=== PATIENT | male | born 1955 | race Caucasian/White ===

== ENCOUNTER 2019-12-21 01:50 | Inpatient (IN) | payer OTHER ==
[~2019-12-21] VITALS: Ht 180.3 cm; Wt 62.1 kg
--- NOTE | ~2019-12-21 | OP ---
[place] [address] OPERATIVE REPORT Name: JOEYANTOINETTE Dickinson Room: [address] IN M.R.#: [id number] Admission: 12/21/19 Attend Phys: Chad Ford MD Discharge: Date of : 59 Report #: [id number] THIS REPORT FOR: //name// cc: Vance Arango MD, Anthony MD ~ CC: Vance Ford DICTATED BY: Kole Pineda DO DATE OF SERVICE: 12/21/2019 PREOPERATIVE DIAGNOSIS: Right displaced femoral neck fracture. POSTOPERATIVE DIAGNOSIS: Right displaced femoral neck fracture. PROCEDURE: Right hip hemiarthroplasty. SURGEON: Oseas Remy DO IMPLANTS: As the followin. A size 12 Taperloc stem, high offset. 2. RingLoc bipolar head 52/28 mm. ASSISTANTS: Kole Pineda DO, Daria Leo DO, . ANESTHESIA: General. FLUIDS: Crystalloid per Anesthesia. ESTIMATED BLOOD LOSS: 200 mL. COMPLICATIONS: None. SPECIMENS: None. COMPLICATIONS: None. CONDITION: Stable to PACU. DISPOSITION: Recovery in PACU and transferred back to the floor. ANTIBIOTICS: 2 grams Ancef IV preop. INDICATIONS FOR PROCEDURE: The patient is a 64-year-old male who sustained a ground level fall. He was brought to [facility] [place] [address] OPERATIVE REPORT Name: ANTOINETTE COOK Room: [address] IN [facility]#: [id number] Admission: 12/21/19 Attend Phys: Chad Ford MD Discharge: Date of : 59 Report #: [id number] x-rays demonstrated a displaced right femoral neck fracture. Different treatment options were discussed at length including hemiarthroplasty. The risks, benefits, alternatives and possible complications were discussed including but not limited to bleeding, vascular injury, infection, intraoperative fracture, pain, stiffness, infection, need for repeat surgery and DVT, PE, , and possible anesthesia complications. He expressed his understanding and was agreeable to proceed. DESCRIPTION OF PROCEDURE: The patient was met in the preoperative area. The correct site was marked. Verbal and written consent were obtained. He was transferred to the operative suite and placed in supine on the OR table. He was given the benefit of general anesthesia and then placed in the left lateral decubitus position. He was secured with the pegboard. All bony prominences were well padded. He was given antibiotics prior to the start of the procedure. A timeout was performed to identify correct patient, procedure and operative site. All in the room were in agreement. This occurred after the right lower extremity was prepped and draped in the normal sterile fashion. The procedure began with an incision on the lateral aspect of the femur extending proximally and curving posteriorly. Sharp and blunt dissection was carried down to the level of the fascia, which was split in line with the incision. Charnley retractor was then placed. We then released the gluteal muscles off of the greater trochanter. A T capsulotomy was then performed exposing the displaced femoral neck fracture. A reciprocating saw was then used for the neck cut approximately 1 cm proximal to the lesser trochanter. This was followed by removal of the fractured femoral head. A trial 52 head was then placed into the acetabulum and was found to have good fit and stability. We then turned our attention to preparation of the femoral canal. We used a box osteotome followed by the canal finder. We then sequentially broached up to a size 12. Trial components consisting of a high offset and 52 head with a -3 neck were then placed and reduced. He was found to be stable with shucking and through range of motion including flexion and internal rotation. Trial components were removed. The incision and bone were then thoroughly irrigated. Final components were thrown on the back table. The final stem was then malleted into place in a press-fit fashion. The final bipolar head was then malleted into place and was found to be stable. We then reduced the final components. The hip was found to be stable again through range of motion and shucking. The wound was then again thoroughly irrigated. The capsule was repaired with #1 Vicryl in cjvwez-pv-wjdle fashion. We then repaired the gluteus to the greater trochanter with #5 Ethibond. This was then oversewn with #1 Vicryl. The fascia was then reapproximated with #1 Vicryl in qmnrgb-fn-ycwsu fashion. The skin was closed with 2-0 Vicryl and simple and inverted interrupted fashion followed by solitario on the skin. Sterile Mepilex dressing was applied to the hip. He was extubated and transferred to the PACU in stable condition. All needle and sponge counts were correct x 2 at the end of the [place] [address] OPERATIVE REPORT Name: ANTOINETTE COOK Room: [facility] IN .R.#: [id number] Admission: 12/21/19 Attend Phys: Chad Ford MD Discharge: Date of : 59 Report #: [id number] complications. I attest Dr. Remy was present and scrubbed throughout all critical aspects of the case. By: 1131 [id number] Remy, DO /nt
[~2019-12-21 01:50] MED LIST: ALUMINUM H320 MG/5 M PO; AMBIEN 5 MG TABL5 M1 PO; AUGMENTIN 875875 M1 PO; BENZTROPINE MES1 MG PO; BISCOLAX10 MG RC; BUDEPRION SR150 MG PO; CLONAZEPAM PO; COZAAR 50 MG TA50 M2 PO; DESYREL100 MG PO; FEVERALL650 MG RECTAL; HYDROCODONE-AP1 EAC6 PO; LEVAQUIN 500 M500 M2 IV; NEURONTIN 300300 M1 PO; NEURONTIN 300M300 M2 PO; NICOTINE TRANSD21 M1; OMEPRAZOLE20 M2 PO; ONDANSETRON HCL4 M2 IV PUSH; PERCOCET 7.5-31 EACH; POLYOX WSR-3011 GM PO; PROTONIX40 M1 PO; PROTONIX40 M2 PO; REMERON15 MG PO; RISPERDAL2 MG PO; TOPROL XL100 MG PO; TRAMADOL 50 MG50 MG PO; TRAZODONE 150150 M1 PO; TYLENOL325 MG PO; XANAX1 MG PO
[2019-12-21 02:17] LABS: ABSOLUTE BASOPHILS 0.1 thou/uL (0.0-0.2); ABSOLUTE EOSINOPHILS 0.1 thou/uL (0.0-0.7); ABSOLUTE LYMPHOCYTES 1.1 thou/uL (0.8-5.3); ABSOLUTE MONOCYTES 0.5 thou/uL (0.0-1.2); BASOPHILS 1.3 %; EOSINOPHILS 1.9 %; HEMOGLOBIN 10.6 gm/dL (14.0-18.0); LYMPHOCYTES 16.7 %; MCH 27.6 pg (26.0-34.0); MCHC 33.3 g/dL (28.0-37.0); MONOCYTES 7.3 %; NUCLEATED RBCS 0 /100WBC; PLATELET COUNT* 319 thou/uL (150-400); POLYS 72.8 %; RBC 3.85 mil/uL (4.50-6.00); RDW-CV 18.9 % (10.5-14.5); WBC 6.9 thou/uL (4.0-11.0)
[2019-12-21 02:22] LABS: CALCIUM 9.3 mg/dL (8.5-10.1); CREATININE 1.1 mg/dL (0.6-1.3); POTASSIUM 4.5 mmol/L (3.5-5.1)
[2019-12-21 02:27] LABS: ALBUMIN 3.5 g/dL (3.4-5.0); TOTAL BILIRUBIN 0.4 mg/dL (<0.1-1.0); TOTAL PROTEIN 7.2 g/dL (6.4-8.2)
[2019-12-21 03:45] VITALS: BP 148/72
[2019-12-21 04:03] LABS: URINE BILIRUBIN NEGATIVE (Negative); URINE BLOOD NEGATIVE (Negative); URINE CLARITY CLEAR; URINE COLOR YELLOW; URINE GLUCOSE-RANDOM NEGATIVE (Negative); URINE KETONES NEGATIVE (Negative); URINE LEUKOCYTES-REFLEX NEGATIVE (Negative); URINE NITRITE-REFLEX NEGATIVE (Negative); URINE PROTEIN NEGATIVE (Negative); URINE UROBILINOGEN 0.2 E.U./dl (0.2-1.0)
[2019-12-21 04:07] VITALS: BP 133/72
[2019-12-21 08:54] VITALS: BP 139/77
[2019-12-21 12:45] VITALS: BP 131/76
--- NOTE | 2019-12-21 13:12 | EKG ---
[place] [address] ELECTROCARDIOGRAM REPORT Name: ANTOINETTE COOK Room: [address] ADM IN .R.#: [id number] Admission: 12/21/19 Attend Phys: Chad Ford, Discharge: Date of : 59 Date of Service: 12/21/19 0202 Report #: [id number] THIS REPORT FOR: //name// [facility] ED Test Date: 2019-12-21 Test Time: 02:02:30 Pat Name: ANTOINETTE COOK Department: Room: [facility] Gender: M [employer]anner: : 1955 Requested By: Nery Liriano Order Number: [id number] MD: Boni Cisneros Measurements Intervals [place] Rate: 68 P: 89 OK: 136 QRS: 81 QRSD: 88 T: 76 QT: 432 QTc: 460 Interpretive Statements Sinus rhythm Consider left atrial enlargement Consider right ventricular hypertrophy Left ventricular hypertrophy Compared to ECG 02/05/2016 16:42:06 Left ventricular hypertrophy now present Prolonged QT interval no longer present Electronically Signed On 12-21-2019 13:12:32 CDT by Boni Cisneros [email or web address] <ELECTRONICALLY SIGNED> By: Keshav Cisneros MD, [facility] 12/21/19 131 1 1 Keshav Cisneros MD, [facility] /EPI
[2019-12-21 16:00] VITALS: BP 100/61
[2019-12-21 19:45] VITALS: BP 103/59
[2019-12-22] VITALS: BP 112/74
[2019-12-22 03:15] VITALS: BP 124/65
[2019-12-22 03:40] LABS: HEMATOCRIT 27.5 % (42.0-52.0); HEMOGLOBIN 9.2 gm/dL (14.0-18.0)
[2019-12-22 08:00] VITALS: BP 97/54
[2019-12-22 16:06] VITALS: BP 114/65
[2019-12-22 20:50] VITALS: BP 121/73
[2019-12-23 04:20] VITALS: BP 104/57
[2019-12-23 04:42] LABS: HEMATOCRIT 26.7 % (42.0-52.0); HEMOGLOBIN 9.2 gm/dL (14.0-18.0)
[2019-12-23 07:30] VITALS: BP 107/66
[2019-12-23] MEDS ORDERED: ELIQUIS5 MG PO (08:40)
[2019-12-23 08:45] VITALS: BP 107/66
[2019-12-23 08:47] VITALS: BP 107/66
[2019-12-23 16:18] VITALS: BP 115/61
[2019-12-23 22:30] VITALS: BP 125/70
[2019-12-24 07:05] VITALS: BP 114/59
[2019-12-24 16:00] VITALS: BP 100/63
[2019-12-24 20:28] VITALS: BP 131/66
[2019-12-25 07:10] VITALS: BP 127/76
[2019-12-25 12:14] VITALS: BP 107/66
[2019-12-25 16:00] VITALS: BP 163/70
[2019-12-25 16:20] VITALS: BP 107/66
[2019-12-25 16:23] VITALS: BP 107/66
== END 2019-12-25 16:49 | disposition home health service (06) | DRG 470 ==
LOC: M.ERS 01:50 → M.ORTHSURG 03:04 → M.TBA-ER 03:04 → M.ORTHSURG 03:58
PROVIDERS: Emergency Medicine; Orthopaedic Surgery; ADMIT Internal Medicine; ATTEND Internal Medicine
PROC: 3E0T3BZ Introduction of Anesthetic Agent into Peripheral Nerves and Plexi, Percutaneous Approach (ICD-10-PCS; principal; 2019-12-21)
PROC: 0SRR0JA Replacement of Right Hip Joint, Femoral Surface with Synthetic Substitute, Uncemented, Open Approach (ICD-10-PCS; 2019-12-21)
DX: M80.051A Age-related osteoporosis with current pathological fracture, right femur, initial encounter for fracture (principal); D62 Acute posthemorrhagic anemia; K21.9 Gastro-esophageal reflux disease without esophagitis; F31.9 Bipolar disorder, unspecified; G47.00 Insomnia, unspecified; I10 Essential (primary) hypertension; J44.9 Chronic obstructive pulmonary disease, unspecified; R13.10 Dysphagia, unspecified; Z20.828 Contact with and (suspected) exposure to other viral communicable diseases; Z79.899 Other long term (current) drug therapy; Z88.8 Allergy status to other drugs, medicaments and biological substances; Z87.891 Personal history of nicotine dependence

== ENCOUNTER 2020-07-28 08:32 | Inpatient (IN) | payer OTHER ==
[~2020-07-28] VITALS: Ht 180.3 cm; Wt 63.1 kg
--- NOTE | ~2020-07-28 | PROC ---
[address] [address] PROCEDURE REPORT Name: ANTOINETTE COOK Room: [address] IN M.R.#: [id number] Admission: 07/28/20 Attend Phys: Chad Ford MD Discharge: 07/29/20 Date of : 59 Report #: [id number] THIS REPORT FOR: cc: Vance Arango MD, Anthony MD [facility],Medical Records Staff ~ For GI report, please see the Provation report in Perceptive 7 content. By: [id number] Records Staff [facility] /KAY
--- NOTE | ~2020-07-28 | CON ---
[address] [address] CONSULTATION Name: ANTOINETTE COOK Room: [address] IN M.R.#: [id number] Admission: 07/28/20 Attend Phys: Chad Ford MD Discharge: 07/29/20 Date of : 59 Report #: [id number] THIS REPORT FOR: cc: Vance Arango MD,Homero Perez MD, DO ~ DOC #: [id number] cc: Chad Ford MD, MD Homero Cortes DO DATE OF CONSULTATION: 07/28/2020 GASTROENTEROLOGY CONSULTATION REFERRING PHYSICIAN: Chad Ford MD REASON FOR CONSULTATION: 1. Dysphagia with findings suggestive of slipped esophageal stent -- evaluate for possible readvancement versus removal of the same. 2. Benign esophageal stricture measuring 6 cm in the distal esophagus with recent deployment of a fully covered esophageal stent (18 mm x 123 mm). 3. History of chronic pancreatitis related to previous alcohol abuse. 4. Weight loss secondary to #1. RECOMMENDATIONS: In comparing the patient's recent x-rays with those from the emergency room, it appears that the stent has definitely migrated proximally. For this reason, we will proceed with upper endoscopy, possible advancement of the stent versus removal of the same. I discussed these plans with the patient as well. He is agreeable to the same. HISTORY OF PRESENT ILLNESS: A 64-year-old white male with history of rather long esophageal stricture that required placement of an 18 mm x 123 mm fully covered esophageal stent this past Monday to help palliate his complaints of dysphagia. The stent was actually placed under fluoroscopic imaging and looked good at the end of deployment. The patient contacted me, however, the day before his admission with complaints that he felt as if the stent may have migrated and for this reason, I recommended he come to the emergency room for further evaluation. I then contacted the emergency room doctor, Dr. Falcon, regarding the same and sent him a picture of where the proximal portion of the stent was on his previous chest x-ray which was just above the lisa. Upon comparing this x-ray with the findings of his x-ray now, it appears the stent had migrated. For this reason, he was admitted to the hospital for further evaluation. He has not been able to eat much of anything. He is also having rather severe chest discomfort and chest pain. He was admitted to the hospital for further [place] [address] CONSULTATION Name: ANTOINETTE COOK Teena Room: [address]#: [id number] Admission: 07/28/20 Attend Phys: Chad Ford MD Discharge: 07/29/20 Date of : 59 Report #: [id number] ALLERGIES: Are to LITHIUM. MEDICATIONS AT HOME: Are supposed to be omeprazole 40 mg twice daily, but we had difficulty getting him approved for twice daily. He also takes Remeron, Desyrel, Cozaar, Xanax and Risperdal. PAST MEDICAL HISTORY: Significant for benign esophageal stricture as I mentioned above. He has problems with anxiety, depression, history of chronic alcohol abuse, history of chronic pancreatitis for which he had endoscopic ultrasound, ERCP and stents placed in the past. He has a history of bipolar disorder as well. PAST SURGICAL HISTORY: He had previous tonsillectomy ___ back in the 60s. SOCIAL HISTORY: The patient denies any recreational drug use. Previously smoked and he quit alcohol. PHYSICAL EXAMINATION: GENERAL: Revealed an emaciated 64-year-old gentleman who appears older than stated age. CARDIOVASCULAR: Revealed a regular rhythm. LUNGS: Clear. ABDOMEN: Soft and nontender. No rebound or guarding noted. LABORATORY DATA: Revealed a white count of 7.4, hemoglobin 12.1, platelet count 282,000, MCV of 78.1, RDW is 15.5. Sodium 132, potassium 4.3, chloride 97, bicarb is 27, BUN 10, creatinine 1.14, GFR 68. Total bilirubin 0.3, alkaline phosphatase 144, AST 7, ALT 16, albumin 3.9. Two view chest x-ray revealed an esophageal stent measuring about 12 cm in length located up to mid esophagus without evidence for pneumomediastinum. The remainder of the x-ray was unremarkable. DISCUSSION: At the present time, the patient's stent has definitely migrated. We will proceed with upper endoscopy today and make further recommendations thereafter. I discussed plans with family as well and he is agreeable to same. Homero Guzmán DO /[address] [address] CONSULTATION Name: ANTOINETTE COOK Room: [address] IN ..#: [id number] Admission: 07/28/20 Attend Phys: Chad Ford MD Discharge: 07/29/20 Date of : 59 Report #: [id number] By: [id number] Guzmán DO /fiorella
[~2020-07-28 08:32] MED LIST changes: +ELIQUIS5 MG PO
[2020-07-28 08:52] VITALS: BP 165/94
[2020-07-28 09:12] LABS: ABSOLUTE EOSINOPHILS 0.2 thou/uL (0.0-0.7); ABSOLUTE LYMPHOCYTES 1.3 thou/uL (0.8-5.3); ABSOLUTE MONOCYTES 0.6 thou/uL (0.0-1.2); ABSOLUTE NEUTROPHILS 5.2 thou/uL (1.6-8.1); BASOPHILS 0.6 %; EOSINOPHILS 2.5 %; HEMATOCRIT 38.6 % (42.0-52.0); HEMOGLOBIN 12.1 gm/dL (14.0-18.0); MCH 24.4 pg (26.0-34.0); MCHC 31.2 g/dL (28.0-37.0); MCV 78.1 fL (80.0-100.0); MONOCYTES 8.7 %; MPV 6.4 fl. (7.2-11.1); NUCLEATED RBCS 0 /100WBC; PLATELET COUNT* 282 thou/uL (150-400); POLYS 70.2 %; RBC 4.95 mil/uL (4.50-6.00); RDW-CV 15.5 % (10.5-14.5); WBC 7.4 thou/uL (4.0-11.0)
[2020-07-28 09:20] LABS: CALCIUM 9.6 mg/dL (8.5-10.1); CREATININE 1.1 mg/dL (0.6-1.3); POTASSIUM 4.3 mmol/L (3.5-5.1)
[2020-07-28 09:25] LABS: ALBUMIN 3.9 g/dL (3.4-5.0); TOTAL BILIRUBIN 0.3 mg/dL (<0.1-1.0); TOTAL PROTEIN 7.6 g/dL (6.4-8.2)
[2020-07-28 14:48] VITALS: BP 141/85
[2020-07-28 15:08] VITALS: BP 141/85
[2020-07-28] MEDS ORDERED: METFORMIN HCL500 MG PO (15:33)
[2020-07-28 19:50] VITALS: BP 143/84
[2020-07-28 20:10] VITALS: BP 152/83
[2020-07-29 00:24] VITALS: BP 111/62
[2020-07-29 04:25] VITALS: BP 109/68
--- NOTE | 2020-07-29 04:34 | NUR ---
PATIENT ARRIVE TO UNIT FROM PACU AT 1954 IN STABLE CONDITION. ALERT AND ORIENTED X 4 ON ARRIVAL. ADMISSION/POST-OP ROUTINES IN PROGRESS. HOME MEDS PROVIDED PER ORDER. PATIENT DENIES PAIN OR NAUSEA. VITAL SIGNS STABLE. HOPES FOR DISCHARGE TODAY. CONTINUE TO MONITOR.
[2020-07-29 05:02] LABS: ABSOLUTE EOSINOPHILS 0.2 thou/uL (0.0-0.7); ABSOLUTE LYMPHOCYTES 1.5 thou/uL (0.8-5.3); ABSOLUTE MONOCYTES 0.5 thou/uL (0.0-1.2); ABSOLUTE NEUTROPHILS 2.1 thou/uL (1.6-8.1); EOSINOPHILS 5.1 %; HEMATOCRIT 33.1 % (42.0-52.0); HEMOGLOBIN 10.6 gm/dL (14.0-18.0); LYMPHOCYTES 33.9 %; MCH 24.8 pg (26.0-34.0); MCHC 31.9 g/dL (28.0-37.0); MCV 77.7 fL (80.0-100.0); MONOCYTES 12.2 %; MPV 6.4 fl. (7.2-11.1); NUCLEATED RBCS 0 /100WBC; PLATELET COUNT* 258 thou/uL (150-400); POLYS 47.8 %; RBC 4.26 mil/uL (4.50-6.00); RDW-CV 15.8 % (10.5-14.5); WBC 4.5 thou/uL (4.0-11.0)
[2020-07-29 05:09] LABS: CALCIUM 9.1 mg/dL (8.5-10.1); CREATININE 0.9 mg/dL (0.6-1.3); POTASSIUM 4.2 mmol/L (3.5-5.1)
[2020-07-29 08:00] VITALS: BP 135/79
[2020-07-29] MEDS ORDERED: OMEPRAZOLE40 MG PO (08:14)
[2020-07-29] MEDS ORDERED: CARAFATE 11 GM/10 M1 PO (08:14)
[2020-07-29 11:35] VITALS: BP 135/79
--- NOTE | 2020-08-03 15:07 | PATH ---
[facility] [address] [place] [address] PATHOLOGY RPT PROCEDURE Name: ANTOINETTE COOK Room: [address] IN .R.#: [id number] Admission: 07/28/20 Date of : 59 Discharge: 07/29/20 Report #: [id number] Path Case #: [id number] [facility] Accession Number: [id number] . 01 Material submitted: . esophagus - BIOPSY ESOPHAGEAL STRICTURE AT 30CM. Modifiers: AT 30CM . 01 Clinical history: . ESOPHAGEAL PAIN, MIGRATED ESOPHAGEAL STENT EGD IN OPERATING ROOM . 02 Diagnosis: Biopsy esophageal stricture at 30 cm: - Heavily inflamed benign fibrovascular stroma/ulcer bed, negative for granulomas and viral inclusions. See comment. (BANDAR:tiarra; 07/31/2020) MBR 07/31/2020 1735 Local . 02 Comment: There is no recognizable epithelial tissue. Properly controlled GMS stain highlights fungal/yeast elements compatible with Lola species in an aggregate of necrotic debris, although they are not identified within intact stroma and it may represent colonization. (BANDAR:brine purifier/cyndi; 08/03/2020) . 02 Electronically signed: . Angel Del Cid MD, Pathologist NPI- [id number] . 01 Gross description: . The specimen is received in formalin, labeled "Antoinette Cook, esophageal biopsy 30 cm". The specimen is additionally labeled on the requisition as, "biopsy esophageal stricture at 30 cm". Received are three segments of pale art tissue ranging in size from 0.2-0.3 cm in maximum dimensions. The specimen is submitted entirely in cassette A1. (CAA; 07/30/2020) QAC/QAC 07/30/2020 1201 Local . 02 Pathologist provided ICD-10: K20.90 . 02 CPT . 139042, 620630 Specimen Comment: A courtesy copy of this report has been sent to [phone] Specimen Comment: [phone], Specimen Comment: Report sent to ,DR CANO / DR CHAVARRIA Performed at: [address] [place] [address] PATHOLOGY RPT PROCEDURE Name: ANTOINETTE COOK Room: [address] IN M.R.#: [id number] Admission: 07/28/20 Date of : 59 Discharge: 07/29/20 Report #: [id number] Path Case #: [id number] [facility] [address] [facility] [address], [place], [place] [id number] MD Thiago Chan MD Phone: [phone] Performed at: 02 [facility] [address], [place], [place] [id number] MD Angel Del Cid MD Phone: [phone]
== END 2020-07-29 13:05 | disposition home or self-care (01) | DRG 920 ==
LOC: M.ERS 08:32 → M.ORTHSURG 10:38 → M.TBA-ER 10:38 → M.ORTHSURG 15:15
PROVIDERS: Family Medicine; Internal Medicine Gastroenterology; ADMIT Internal Medicine; ATTEND Internal Medicine
PROC: 0DP58DZ Removal of Intraluminal Device from Esophagus, Via Natural or Artificial Opening Endoscopic (ICD-10-PCS; principal; 2020-07-28)
PROC: 0DB58ZX Excision of Esophagus, Via Natural or Artificial Opening Endoscopic, Diagnostic (ICD-10-PCS; principal; 2020-07-28)
DX: T85.528A Displacement of other gastrointestinal prosthetic devices, implants and grafts, initial encounter (principal); E87.1 Hypo-osmolality and hyponatremia; K22.10 Ulcer of esophagus without bleeding; K22.2 Esophageal obstruction; F31.9 Bipolar disorder, unspecified; J44.9 Chronic obstructive pulmonary disease, unspecified; G47.00 Insomnia, unspecified; R73.9 Hyperglycemia, unspecified; K21.00 Gastro-esophageal reflux disease with esophagitis, without bleeding; I10 Essential (primary) hypertension; X58.XXXA Exposure to other specified factors, initial encounter; K44.9 Diaphragmatic hernia without obstruction or gangrene; Y83.8 Other surgical procedures as the cause of abnormal reaction of the patient, or of later complication, without mention of misadventure at the time of the procedure; Z20.822 Contact with and (suspected) exposure to COVID-19; Z88.8 Allergy status to other drugs, medicaments and biological substances; Z79.899 Other long term (current) drug therapy; Z79.01 Long term (current) use of anticoagulants; Y92.89 Other specified places as the place of occurrence of the external cause; Z87.891 Personal history of nicotine dependence

== ENCOUNTER → 2020-09-04 | Outpatient (CLI) | payer OTHER ==
[~2020-09-04] MED LIST changes: +CARAFATE 11 GM/10 M1 PO; +METFORMIN HCL500 MG PO; +OMEPRAZOLE40 MG PO
== END ==
LOC: M.RAD 08-31 10:00
PROVIDERS: ATTEND Internal Medicine Gastroenterology
DX: K22.2 Esophageal obstruction (principal); K22.8 Other specified diseases of esophagus